=== PATIENT | male | born 2000 | race Caucasian/White ===

== ENCOUNTER 2020-10-22 06:23 | Outpatient (CLI) | payer OTHER ==
[~2020-10-22 06:23] MED LIST: ZYRTEC10 M3
== END 2020-10-22 06:29 | disposition home or self-care (01) ==
LOC: LAB 06:23
PROVIDERS: ATTEND Internal Medicine Endocrinology, Diabetes & Metabolism
DX: Z20.828 Contact with and (suspected) exposure to other viral communicable diseases (principal)